=== PATIENT | female | born 1985 | race Caucasian/White ===

== ENCOUNTER → 2016-10-10 | Outpatient (CLI) | payer OTHER ==
[~2016-10-10] MED LIST: ABILIFY; ACETAMINOPHEN PO; ACETAMINOPHEN650 M1 PO; ADVAIR INH; ALBUTEROL17 G1 IH; ALBUTEROL17 GM INH; ALBUTEROL17 GM NEB; ALBUTEROL20 ml INH; AMITIZA24 MCG PO; AMOXICILLIN PO; BACTRIM DS TABL1 TA1 PO; BACTRIM DS TABL1 TAB PO; COLACE50 MG PO; DOXYCYCLINE PO; DULCOLAX5 MG PO; FLUPHENAZINE HCL5 MG PO; IMITREX PO; KEFLEX PO; KEFLEX500 MG PO; LORTAB 7.5-3251 EACH PO; METAMUCIL1 PKT PO; METHADOSE PO; MIRALAX17 GM PO; MOTRIN400 MG PO; NAPROXEN PO; NEURONTIN600 MG PO; OMEPRAZOLE40 M1 PO; PAXIL10 MG PO; PHENERGAN PO; PRENATAL MULITV1 TAB PO; PRENATAL VITAMI1 TA3 PO; PROZAC PO; PROZAC40 M1 PO; PROZAC40 MG PO; ZITHROMAX PO
--- NOTE | ~2016-10-10 | US5 ---
[facility] A Service of [facility] RADIOLOGY TEXT RESULTS PATIENT: TOSIN VALIENTE LOCATION: US : 83 UNIT #: [id number] AGE: [address]: HERLINDA CONWAY SEX: F ORDER DR: [id number] [facility] [address] [place], [place] [address] [id number] O MR#: [id number] Acc #: [id number] NAME: TOSIN VALIENTE : 1985 SEX: F STUDY DATE/TIME: 10/10/2016 11:54 UNIT: [facility] ROOM: STUDY DESCRIPTION: US Abdominal Complete Attending Physician: Corinna Becerril Referring Physician: Corinna Becerril Ordering Physician: Corinna Becerril Primary Care Physician: Hayley Doty M.D. MEDICAL IMAGING REPORT This report is preliminary unless electronic signature is present EXAM Abdominal ultrasound, 10/10. INDICATION Abdominal pain and bloating for several years. FINDINGS Sonographic evaluation is for of the abdomen in multiple planes. Comparison made with CT abdomen from 10/30/2010. The pancreas is normal. The proximal aorta is 1.3 cm. Mid aorta is 1.4 cm. The distal aorta is 1.2 cm. IVC patent by Doppler. The liver is echogenic, compatible with and fatty infiltration. No focal liver mass. Common duct measures 3 mm internal diameter. Main portal vein patent by Doppler. Gallbladder is partially contracted. No definitive stones are identified. Both kidneys are morphologically normal and nonobstructed. There is no free fluid. The spleen is enlarged with a wboc-th-sect length of 13.3 cm. IMPRESSION 1. Gallbladder partially contracted but otherwise normal. 2. Fatty infiltration of the liver. 3. Splenomegaly. Dictated by... Jan Wills Jr., M.D. THIS IS AN ELECTRONICALLY VERIFIED REPORT Jan Wills Jr., M.D. at 10/11/2016 5:53 AM CLARE/estella TD: 10/10/2016 18:29 JOB #: [id number] [facility] A Service of [facility] RADIOLOGY TEXT RESULTS PATIENT: TOSIN VALIENTE [id number] [birth year] UNIT #: [id number] AGE: [address]: HERLINDA CONWAY SEX: F ORDER DR: MEDICAL IMAGING REPORT Page 1 of 1 COPY
--- NOTE | ~2016-10-10 | US84 ---
[id number] [facility] [address] [place], [place] [address] [id number] O MR#: [id number] Acc #: [id number] NAME: TOSIN VALIENTE : 1985 SEX: F STUDY DATE/TIME: 10/10/2016 11:27 UNIT: [facility] ROOM: STUDY DESCRIPTION: US LE Veins Complete Reed Stdy Attending Physician: Corinna Becerril Referring Physician: Corinna Becerril Ordering Physician: Corinna Becerril Primary Care Physician: Hayley Doty M.D. MEDICAL IMAGING REPORT This report is preliminary unless electronic signature is present EXAM Bilateral leg vein Doppler on 10/10/2016 INDICATIONS Bilateral leg swelling and pain for 1 month. TECHNIQUE Venous ultrasound examination of both lower extremities was performed using grayscale, spectral Doppler and color flow Doppler imaging. FINDINGS The examination is negative. There is no evidence of deep venous thrombus from the groin to the lower calf bilaterally. Visualized greater saphenous veins are also patent. IMPRESSION Negative examination. No evidence of lower extremity deep venous thrombosis. Dictated by... Jan Wills Jr., M.D. THIS IS AN ELECTRONICALLY VERIFIED REPORT Jan Wills Jr., M.D. at 10/11/2016 5:53 AM CLARE/zoraida TD: 10/10/2016 17:40 JOB #: [id number] MEDICAL IMAGING REPORT Page 1 of 1 COPY
== END | disposition home or self-care (01) ==
LOC: CGUS 10:30
DX: M79.89 Other specified soft tissue disorders (principal); R10.9 Unspecified abdominal pain; R14.0 Abdominal distension (gaseous); K76.0 Fatty (change of) liver, not elsewhere classified; R16.1 Splenomegaly, not elsewhere classified
CPT/HCPCS: 76700; 93970

== ENCOUNTER 2016-12-06 11:57 | Inpatient (IN) | payer OTHER ==
--- NOTE | ~2016-12-06 | DS ---
Unit #: [id number] #: [id number] Patient: TOSIN ROUSSEAU [id number] [address] [place], [place] [address] [id number] I MR#: [id number] NAME: TOSIN ROUSSEAU ROOM: 217 Age: 31 Sex: F Admission Date: 12/06/2016 : 1985 Discharge Date: 12/09/2016 Attending Physician: Hayley Doty M.D. Primary Care Physician: Hayley Doty M.D. DISCHARGE SUMMARY CONSULTATION IN THE HOSPITAL 1. Dr. Farrell - GI Services. 2. Dr. Arriola - [facility] Services. LAB WORKUP ON DISCHARGE Sodium 141, potassium 4.4, chloride 106, BUN 6, creatinine 0.6, calcium 9.1. Liver enzymes are stable. WBC 7.0, hemoglobin 12.8, hematocrit 38.1, platelet count 214. BNP on admission was 60. Urine test was negative. SIGNIFICANT RADIOLOGICAL STUDIES DONE DURING HOSPITALIZATION 1. CT scan of the abdomen and pelvis that shows no acute findings in the abdomen or pelvis to account for patient's symptoms. 2. HIDA scan of right upper quadrant was done which was normal. 3. HIDA scan with gallbladder, ejection fraction of 72.1%. HOSPITAL COURSE Ms. Tosin Rousseau is a 31-year-old female who was admitted to the hospital with abdominal pain, intractable vomiting, history of Hep-C, polysubstance abuse including IV drugs, depression and asthma, was admitted with abdominal distention, leg swelling and vomiting and abdominal pain. The patient was admitted to Med Surg Unit. LSA was consulted. CT scan was done which was negative. Etiology of abdominal distention is not known at this time. Patient was also seen by Dr. Farrell. Patient will need to continue to follow with Dr. Farrell as outpatient. She will need colonoscopy as outpatient. Patient has had EGD in the past. Plan of care discussed with patient at length. She does verbalize understanding. EXAMINATION ON DISCHARGE VITAL SIGNS: Blood pressure is 109/75, respiratory rate 15, pulse is 89, temperature 98.4. Oxygen saturation is 98%. HEAD: Normocephalic. CHEST: Fair air entry. CVS: Regular rhythm. ABDOMEN: Distended but soft to touch. EXTREMITIES: Trace edema. DISCHARGE INSTRUCTIONS The patient is being discharged home in stable condition. MEDICATIONS As per Med Rec. Unit #: [id number] #: [id number] Patient: TOSIN ROUSSEAU FOLLOWUP 1. Follow up with primary care provider in one week. 2. Follow up with Dr. Farrell within a week. Dictated by... Bell Ceballos/adi TD: 12/10/2016 05:22 JOB #: [id number] DISCHARGE SUMMARY Page 1 of 1 X Hayley Doty MD X DISCHARGE SUMMARY
--- NOTE | ~2016-12-06 | NM22 ---
[facility] A Service of [facility] RADIOLOGY TEXT RESULTS PATIENT: TOSIN VALIENTE LOCATION: A 217-01 : 83 UNIT #: [id number] AGE: [address]: Hayley Doty MD SEX: F ORDER DR: [id number] [facility] [address] [place], [place] [address] [id number] I MR#: [id number] Acc #: [id number] NAME: TOSIN VALIENTE : 1985 SEX: F STUDY DATE/TIME: 12/07/2016 9:33 UNIT: [facility] ROOM: [facility] STUDY DESCRIPTION: NM Hepatobiliary W GB Pharm Attending Physician: Hayley Doty M.D. Ordering Physician: Hay Crabtree M.D. Primary Care Physician: Hayley Doty M.D. MEDICAL IMAGING REPORT This report is preliminary unless electronic signature is present EXAM HIDA scan with Kinevac CCK 12/07/2016 HISTORY Right upper quadrant abdominal pain with lower abdominal pain, abdominal bloating, and distension. Symptoms began 10/11/2016, worsening in the past 2 weeks with nausea, vomiting, diarrhea, and acid reflux. TECHNIQUE The patient received an intravenous injection of 4.55 mCi of technetium-99m tagged Choletec for hepatobiliary imaging. 1 hour following the injection of the radiopharmaceutical, the patient received an intravenous injection of 1.3 mcg of Kinevac. FINDINGS There is homogeneous distribution of the radiotracer throughout the liver. Gallbladder activity was seen by 15 minutes postinjection of the radiopharmaceutical. Following Kinevac injection, the gallbladder ejection fraction was 72.1% (normal is greater than 30%). IMPRESSION Normal HIDA scan with gallbladder ejection fraction of 72.1%. Dictated by... Anthony Edward M.D. THIS IS AN ELECTRONICALLY VERIFIED REPORT Anthony Edward M.D. at 12/07/2016 5:41 PM KOSTAS/lyla TD: 12/07/2016 17:08 JOB #: [id number] [facility] A Service of [facility] RADIOLOGY TEXT RESULTS PATIENT: TOSIN VALIENTE [facility] [place] [id number] [id number] [birth year] UNIT #: [id number] AGE: [address]: Hayley Doty MD SEX: F ORDER DR: MEDICAL IMAGING REPORT Page 1 of 1 COPY
--- NOTE | ~2016-12-06 | CO ---
Unit #: [id number] #: [id number] Patient: TOSIN ROUSSEAU [id number] [address] [place], [place] [address] [id number] I MR#: [id number] NAME: TOSIN ROUSSEAU ROOM: 217 Age: 31 Sex: F Admission Date: 12/06/2016 : 1985 Attending Physician: Hayley Doty M.D. Primary Care Physician: Hayley Doty M.D. Consultation Date: 12/06/2016 CONSULTATION REPORT REASON FOR CONSULTATION Abdominal distension. HISTORY OF PRESENT ILLNESS Thank you very much for asking us to see Ms. Rousseau. She is a 31-year-old, white female. She states that over the last 3-4 months she has had alternating nausea and diarrhea. She has also had increased abdominal distension. Her past surgical history is remarkable for C section x 3 as well as incision and drainage of a left wrist abscess secondary to possible IV drug injection. The patient denies GI bleeding. No or pulmonary symptoms. No fevers, chills, or jaundice. The patient states she has a history of liver disease secondary to heavy alcohol use; however, she states she does not drink anymore. She presents at this time for further evaluation and treatment. She had a recent ultrasound, which showed a contracted gallbladder, but no obvious stones. ALLERGIES No known medical allergies. MEDICATIONS Please see med rec sheet. PAST SURGICAL HISTORY C section and incision and drainage of wrist abscess. PAST MEDICAL HISTORY Asthma, depression, hepatitis C, polysubstance abuse, IV drug use, and heavy alcohol use. SOCIAL HISTORY Positive tobacco use. Patient denies any recreational drug use or alcohol use at this time. FAMILY HISTORY Asthma and breast cancer. IMMUNIZATION STATUS Unknown. REVIEW OF SYSTEMS Negative, except for above. PHYSICAL EXAMINATION GENERAL APPEARANCE: Well developed, well nourished, white female in no Unit #: [id number] #: [id number] Patient: TOSIN ROUSSEAU apparent distress. VITAL SIGNS: Afebrile. Vital signs stable. NECK: Supple. No thyromegaly or adenopathy. BACK: No CVA or spinous tenderness. EXTREMITIES: No calf tenderness. No erythema. ABDOMEN: Examination of the patient's abdomen shows a very distended abdomen, but it is very soft. There is no rebound, peritoneal signs, or masses. No obvious hernias. No rigidity. DIAGNOSTIC STUDIES LABORATORY STUDIES: The patient's CMP shows a glucose of 101, BUN 11, creatinine 0.7, and normal electrolytes and liver function studies, other than alkaline phosphatase of 99. Amylase and lipase are normal. White count is 7 with a hemoglobin of 12.8 and hematocrit of 38.1. IMPRESSION This is a 31-year-old, white female with abdominal distention as well as nausea and diarrhea. We have recommended stool cultures for O and P, C and S, C. diff. culture, and toxin. In addition, we agree with her obtaining a CT scan of the abdomen and pelvis. This has been ordered and we await the results. All has been fully explained to the patient in detail. We await the results of the CT scan and will proceed accordingly. Dictated by... Bell Gates TD: 12/07/2016 08:26 JOB #: [id number] CONSULTATION REPORT Page 1 of 1 X Jose Carlos Lancaster MD X CONSULTATION REPORT
--- NOTE | ~2016-12-06 | CT2 ---
[facility] A Service of [facility] RADIOLOGY TEXT RESULTS PATIENT: TOSIN VALIENTE LOCATION: [facility] : 83 UNIT #: [id number] AGE: [address]: Hayley Doty MD SEX: F ORDER DR: [id number] [facility] [address] [place], [place] [address] [id number] I MR#: [id number] Acc #: [id number] NAME: TOSIN VALIENTE : 1985 SEX: F STUDY DATE/TIME: 12/06/2016 20:24 UNIT: [facility] ROOM: 217 STUDY DESCRIPTION: CT Abd and Pelv W Cont Attending Physician: Hayley Doty M.D. Ordering Physician: Hayley Doty M.D. Primary Care Physician: Hayley Doty M.D. MEDICAL IMAGING REPORT This report is preliminary unless electronic signature is present EXAM CT abdomen and pelvis INDICATIONS Diffuse abdominal pain. Distended abdomen. Nausea and vomiting. TECHNIQUE CT of the abdomen and pelvis with p.o. and IV contrast. Coronal and sagittal reconstructions were obtained. This CT exam was performed with one or more of the following radiation dose reduction techniques: automatic exposure control, adjustment of mA and/or kV according to patient size, and iterative reconstruction. COMPARISON CT abdomen and pelvis 10/30/2010. FINDINGS ABDOMEN: The solid abdominal organs enhance normally. The gallbladder is not distended. No intrahepatic or extrahepatic biliary dilatation. There is a large amount of food in the stomach suggesting recent meal. The small bowel is not dilated. The appendix is normal. No enlarged retroperitoneal or mesenteric lymph nodes. The abdominal aorta is normal in caliber. PELVIS: Uterus and ovaries are within normal limits. No pelvic mass or free pelvic fluid. Bladder is unremarkable. No enlarged pelvic or inguinal lymph nodes. No acute osseous abnormalities. IMPRESSION [facility] A Service of [facility] RADIOLOGY TEXT RESULTS PATIENT: TOSIN VALIENTE LOCATION: [facility] : 83 UNIT #: [id number] AGE: [address]: Hayley Doty MD SEX: F ORDER DR: 1. No acute findings in the abdomen or pelvis to account for the patient's symptoms. Dictated by... Dwayne Guillory M.D. THIS IS AN ELECTRONICALLY VERIFIED REPORT Dwayne Guillory M.D. at 12/07/2016 3:11 PM RPC/bernadette TD: 12/06/2016 22:21 JOB #: [id number] MEDICAL IMAGING REPORT Page 1 of 1 COPY
--- NOTE | ~2016-12-06 | HP ---
Unit #: [id number] #: [id number] Patient: TOSIN ROUSSEAU [id number] [address] [place], [place] [address] [id number] I MR#: [id number] NAME: TOSIN ROUSSEAU ROOM: 217 Age: 31 Sex: F Admission Date: 12/06/2016 : 1985 Attending Physician: Hayley Doty M.D. Primary Care Physician: Hayley Doty M.D. HISTORY AND PHYSICAL ADMISSION DIAGNOSES 1. Abdominal pain. 2. Questionable liver cirrhosis. 3. History of Hep-C. 4. Polysubstance abuse including IV drugs. 5. Depression. 6. History of asthma. HISTORY OF PRESENT ILLNESS Ms. Rousseau is a 31-year-old female, patient of Dr. Doty'tong, with ongoing history of IV drug abuse. She admits last time using IV heroin about a month ago. She carries a diagnosis of Hep-C and comes to the emergency room with complaints of abdominal pain along with increasing abdominal distention. Apparently, patient was previously seen by Dr. Farrell and had a scope. She denies any fever, chills, denies any nausea, vomiting, diarrhea. Complains of diffuse abdominal pain yet when I came twice in her room to see her she was off the floor and nowhere to be found. She tells me that she stopped drinking for several months now and the last time she injected the IV heroin was about a month ago. Denies any chest pain, shortness of air, headache, dizziness or syncope. REVIEW OF SYSTEMS Twelve point review of systems on this patient is basically negative except as above. PAST MEDICAL HISTORY Significant for: 1. History of asthma. 2. Depression. 3. Hepatitis C. 4. Polysubstance abuse including IV drugs and opiate dependence. 5. Alcohol abuse. PAST SURGICAL HISTORY Significant for: 1. . 2. Exploratory laparotomy. MEDICATIONS Current medications include: 1. IV Protonix. 2. Zofran. 3. Tylenol. 4. She also was taking Prozac at home. Unit #: [id number] #: [id number] Patient: TOSIN ROUSSEAU 5. Neurontin. 6. Albuterol. 7. Motrin. 8. Imitrex. ALLERGIES No known drug allergies. SOCIAL HISTORY Again, denies any alcohol use. Smokes and uses the IV drugs. Now she is claiming that she had been drug free for a month. FAMILY HISTORY Unremarkable. PHYSICAL EXAMINATION GENERAL: The patient is a 31-year-old female in no acute distress. VITAL SIGNS: BP 93/60, heart rate 75, respirations 18, temperature 97.6. HEENT: Head is atraumatic. Pupils equal, round, reactive to light and accommodation. Extraocular muscles intact. Oropharynx clean. NECK: Supple. No masses, no JVD, no bruits. CHEST: Diminished bilaterally. CARDIOVASCULAR: S1, S2. No murmurs. ABDOMEN: Distended, soft. Tender all over. No rebound. Bowel sounds positive. EXTREMITIES: Pulses are diminished in the lower extremities without any cyanosis, clubbing or edema. NEUROLOGIC: Patient is grossly intact. No focal deficits. DIAGNOSTIC STUDIES All unremarkable except for elevated alkaline phosphatase at 99. White count 7.0. ASSESSMENT AND PLAN 1. Abdominal pain, status post evaluation, continue Tylenol for pain control. We will not give any opiates. Continue supportive care. Follow up on the stool studies. 2. History of Hep-C with questionable liver cirrhosis and abdominal distention. Will ask GI, Dr. Lau, to see. 3. History of polysubstance abuse and IV drugs. Will order patient not to leave the floor. 4. History of depression, continue Prozac. 5. History of asthma. Continue bronchodilators. 6. GI and DVT prophylaxis. Continue PPI and SCDs. Dictated by Bell Esquivel/adi TD: 12/07/2016 07:27 JOB #: [id number] Unit #: [id number] #: [id number] Patient: TOSIN ROUSSEAU HISTORY AND PHYSICAL Page 1 of 1 X Pepe Cruz MD HISTORY AND PHYSICAL
[~2016-12-06 11:57] MED LIST changes: -ALBUTEROL20 ml INH; -AMITIZA24 MCG PO; -IMITREX PO; -MIRALAX17 GM PO; -MOTRIN400 MG PO; -OMEPRAZOLE40 M1 PO; -PROZAC40 M1 PO
[2016-12-06] MEDS ORDERED: OMEPRAZOLE40 M1 PO (13:21)
[2016-12-06] MEDS ORDERED: MOTRIN400 MG PO (13:21)
[2016-12-06] MEDS ORDERED: IMITREX PO (13:21)
[2016-12-06] MEDS ORDERED: NEURONTIN600 MG PO (13:22)
[2016-12-06] MEDS ORDERED: ALBUTEROL20 ml INH (13:22)
[2016-12-06 14:05] LABS: HEMATOCRIT 38.1 % (35.0-45.0); HEMOGLOBIN 12.8 gm/dL (12.0-16.0); MEAN CELL VOLUME 86.7 FL (83-96); MEAN CORPUSCULAR HEMOGLOBIN 29.1 PG (28-34); MEAN CORPUSCULAR HGB CONC 33.5 g/dL (30-36); MEAN PLATELET VOLUME 9.3 FL (6.5-11.5); RED BLOOD COUNT 4.4 X10e (3.90-5.30); RED CELL DISTRIBUTION WIDTH 14.6 % (11.0-15.5)
[2016-12-06] MEDS ORDERED: PROZAC40 M1 PO (14:41)
[2016-12-06 14:51] LABS: ALBUMIN SERUM 3.6 g/dL (3.5-5.0); BILIRUBIN,TOTAL 0.5 mg/dL (0.2-2.0); BUN/CREATININE RATIO 15.71; CALCIUM SERUM 9.1 mg/dL (8.4-10.2); CREATININE SERUM 0.7 mg/dL (0.6-1.4); GLOM FILT RATE Estimated 113.8 mL/min (>60); POTASSIUM 4.1 mmol/L (3.5-5.1); PROTEIN TOTAL SERUM 7.1 g/dL (6.0-8.3)
[2016-12-08 05:51] LABS: ALBUMIN SERUM 3.1 g/dL (3.5-5.0); BILIRUBIN,TOTAL 0.3 mg/dL (0.2-2.0); CALCIUM SERUM 9.1 mg/dL (8.4-10.2); CREATININE SERUM 0.6 mg/dL (0.6-1.4); GLOM FILT RATE Estimated 119.8 mL/min (>60); POTASSIUM 4.4 mmol/L (3.5-5.1)
[2016-12-09] MEDS ORDERED: MIRALAX17 GM PO (14:24)
[2016-12-26] MEDS ORDERED: AMITIZA24 MCG PO (09:40)
== END 2016-12-09 16:27 | disposition home or self-care (01) | DRG 392 ==
LOC: C2A 11:57 → UNDOADMIN 12:37 → C2A 12:37
PROVIDERS: Physician Assistant Medical
DX: R10.9 Unspecified abdominal pain (principal); F11.20 Opioid dependence, uncomplicated; F32.9 Major depressive disorder, single episode, unspecified; J45.909 Unspecified asthma, uncomplicated; Z80.3 Family history of malignant neoplasm of breast; Z82.5 Family history of asthma and other chronic lower respiratory diseases; F10.10 Alcohol abuse, uncomplicated; Z86.19 Personal history of other infectious and parasitic diseases
CPT/HCPCS: 74177; 78227; 80053; 82150; 83690; 83880; 84703; 85027; 87045; 87177; 87209; 87427; 87899; 94664; 94760; A9537; C9113; J2405; J2805; Q9967

== ENCOUNTER → 2016-12-25 | Day surgery (SDC) | payer OTHER ==
[~2016-12-25] MED LIST changes: +ALBUTEROL20 ml INH; +AMITIZA24 MCG PO; +IMITREX PO; +MIRALAX17 GM PO; +MOTRIN400 MG PO; +OMEPRAZOLE40 M1 PO; +PROZAC40 M1 PO
--- NOTE | ~2016-12-25 | OR ---
Unit #: [id number] #: [id number] Patient: TOSIN VALIENTE [id number] [address] [place], [place] [address] [id number] O MR#: [id number] NAME: TOSIN VALIENTE ROOM: Date of Procedure: 12/25/2016 Admission Date: 12/25/2016 Surgeon: Yossi Farrell M.D. : 1985 Attending Physician: Yossi Farrell M.D. Primary Care Physician: Hayley Doty M.D. OPERATIVE REPORT PROCEDURE PERFORMED Colonoscopy aborted. INDICATIONS FOR PROCEDURE A 31-year-old with chronic abdominal pain, chronic constipation severe along with the blood in the stool, undergoing colonoscopy for evaluation. MEDICATIONS Monitored Anesthesia. POSTOPERATIVE FINDINGS Colonoscopy was aborted, because of presence of hard stool in the rectum. PLAN Schedule a repeat coloscopy after extended prep. DESCRIPTION OF PROCEDURE The patient was explained of the procedure risks and benefits along with the risks and benefits of anesthesia. She was brought to the endoscopy room. Propofol anesthesia was given. Rectal exam was normal. Scope was lubricated, passed up the rectum and at this point pulled out because of presence of hard stools. She tolerated it well. Dictated by... Bell Patel/sakina TD: 12/25/2016 13:21 JOB #: [id number] CC: Hayley Doty M.D. Unit #: [id number] #: [id number] Patient: TOSIN VALIENTE OPERATIVE REPORT Page 1 of 1 X Yossi Farrell MD X PROCEDURE OPERATIVE NOTE
== END | disposition home or self-care (01) ==
LOC: COPS 06:20
DX: K59.09 Other constipation (principal); K92.1 Melena; R10.9 Unspecified abdominal pain; G89.29 Other chronic pain; K21.9 Gastro-esophageal reflux disease without esophagitis; J45.909 Unspecified asthma, uncomplicated; F17.210 Nicotine dependence, cigarettes, uncomplicated; Z98.890 Other specified postprocedural states; Z79.899 Other long term (current) drug therapy
CPT/HCPCS: 84703

== ENCOUNTER → 2016-12-26 | Day surgery (SDC) | payer OTHER ==
--- NOTE | ~2016-12-26 | OR ---
Unit #: [id number] #: [id number] Patient: TOSIN VALIENTE [id number] [address] [place], [place] [address] [id number] O MR#: [id number] NAME: TOSIN VALIENTE ROOM: Date of Procedure: 12/26/2016 Admission Date: 12/26/2016 Surgeon: Yossi Farrell M.D. : 1985 Attending Physician: Yossi Farrell M.D. Primary Care Physician: Hayley Doty M.D. OPERATIVE REPORT PROCEDURE PERFORMED Colonoscopy to cecum. INDICATIONS FOR PROCEDURE A 32-year-old female with chronic abdominal pain, chronic constipation, undergoing evaluation with colonoscopy. MEDICATIONS Monitored anesthesia. POSTOPERATIVE FINDINGS 1. Good prep. 2. Normal exam to cecum. PLAN Symptomatic treatment. DESCRIPTION OF PROCEDURE The patient was explained of the procedure, risks, and benefits along with the risks and benefits of anesthesia. She was brought to the endoscopy room. Propofol anesthesia was given. Rectal exam was done, which was normal. Colonoscope was lubricated, passed up the rectum, advanced under direct vision all the way to the cecum. Cecum was identified by ileocecal valve and appendiceal orifice. I then started to pull the scope out carefully looking. No polyps, masses, or colitis were seen. Mucosa was normal and healthy. I retroflexed in the rectum, small hemorrhoids seen. The scope was gently pulled out. She tolerated it well. Dictated by... Bell Patel/sakina TD: 01/10/2017 06:29 JOB #: [id number] Unit #: [id number] #: [id number] Patient: TOSIN VALIENTE OPERATIVE REPORT Page 1 of 1 X Yossi Farrell MD X PROCEDURE OPERATIVE NOTE
== END | disposition home or self-care (01) ==
LOC: COPS 06:33
PROVIDERS: Internal Medicine
PROC: 0DJD8ZZ Inspection of Lower Intestinal Tract, Via Natural or Artificial Opening Endoscopic (ICD-10-PCS; principal; 2016-12-26 13:00)
DX: R10.9 Unspecified abdominal pain (principal); K59.09 Other constipation; K64.9 Unspecified hemorrhoids; K21.9 Gastro-esophageal reflux disease without esophagitis; J45.909 Unspecified asthma, uncomplicated; F17.200 Nicotine dependence, unspecified, uncomplicated; Z79.899 Other long term (current) drug therapy; Z98.890 Other specified postprocedural states
CPT/HCPCS: J2250